=== PATIENT | female | born 2000 | race Two or more races ===

== ENCOUNTER 2025-03-03 13:51 | Emergency (ER) | payer MEDICAID, SELFPAY ==
[2025-03-03 14:31] VITALS: BP 128/83; PULSE 120; RESP 20; TEMP 37.6; O2SAT 95; BMI 49.8
--- NOTE | 2025-03-03 14:44 | EDNOTE_ITS ---
<Statement entered by Keren Lopes MD - 03/04/25 06:23> As co-signing physician, I was present and available for consult prn. I concur with the plan and care as documented by the midlevel provider. ED SOB =RME/HPI General Chief Complaint: Shortness of Breath/Dyspnea Stated Complaint: shortness of breath asthma attack Time Seen by Provider: 03/03/25 14:35 Source: patient Arrival date/time: 03/03/25 13:51 Mode of arrival: ambulatory Limitations: no limitations RME / HPI RME / HPI Narrative: 24-year-old female tells me that she was not able to read and this began last night. Patient is known asthmatic and tells me that her medications were not working properly. Complaint: shortness of breath and cough Onset (ago): day(s) (BEGAN LAST NIGHT) Severity: moderate Known history of: asthma Related Data Previous Rx's ?Medication ?Instructions ?Recorded albuterol sulfate 90 mcg/actuation 2 puff inhalation Q 4H PRN 07/04/22 aerosol inhaler shortness of breath or wheez ing #8.5 grams azithromycin 250 mg tablet See Rx Instructions PO .COM PLEX #6 07/04/22 tabs albuterol sulfate 90 mcg/actuation 2 puff inhalation Q 6H PRN 03/03/25 aerosol inhaler (Ventolin HFA) shortness of breath or wheezing #6.7 grams Allergies Allergy/AdvReac Type Severity Reaction Status Date / Time No Known Allergies Allergy Verified 03/03/25 13:54 Review of Systems Constitutional Constitutional: Reports system reviewed and no additional complaints, except as documented Eyes Eyes: Reports system reviewed and no additional complaints, except as documented, Denies dry eyes, Denies exophthalmos and Reports floaters Cardiovascular Cardiovascular: Denies chest pain with activity and Denies claudication Past Medical History Past Medical History CARDIAC: Negative Congestive Heart Failure RESPIRATORY: Positive Asthma; Negative Chronic Obstructive Pulmonary Disease (COPD) GENITOURINARY: Negative Renal Disease ENDOCRINE: Negative Diabetes Mellitus Type 1 or Diabetes Mellitus Type 2 Social History SMOKING STATUS: Never smoker ED Exam General Limitations: Present no limitations General appearance: Present alert and in no apparent distress Head Head exam: Present atraumatic Eye Eye exam: Present normal appearance, PERRL and EOMI ENT ENT exam: Present normal exam, normal oropharynx and mucous membranes moist Neck Neck exam: Present normal inspection, full ROM and trachea midline Chest Chest inspection: Present normal inspection and symmetric chest wall rise Respiratory Respiratory exam: Present wheezes (Lungs are tight and there is expiratory wheezing present. There is) Cardiovascular Cardiovascular exam: Present regular rate, normal rhythm and normal heart sounds Abdominal Exam Abdominal exam: Present soft and normal bowel sounds Extremities Exam Extremities exam: Present normal inspection and full ROM Back Exam Back exam: Present normal inspection and full ROM Neurological Exam Neurological exam: Present alert, oriented X3 and CN II-XII intact Psychiatric Psychiatric exam: Present normal affect and normal mood Skin Skin exam: Present warm, dry, intact and normal color Course Course Course Narrative: Patient will have a overall breathing treatment as well as prednisone 125 mg x 1. Quality Measures none Orders Category Date Time Status Albuterol/Ipratr Rt Perlita [Duoneb Rt Perlita] Med 03/03/25 14:43 Discontinued 3 ml INH X1 ONE Albuterol/Ipratr Rt Perlita [Duoneb Rt Perlita] Med 03/03/25 15:30 Discontinued 3 ml INH X1 ONE MethylPREDNISolone.* [SoluMEDROL Inj] Med 03/03/25 14:43 Discontinued 125 mg IM X1 ONE Vital Signs Vital signs: Vital Signs Temperature 99.6 F 03/03/25 14:31 Pulse Rate 120 H 03/03/25 14:31 Respiratory Rate 20 03/03/25 14:31 Blood Pressure 128/83 03/03/25 14:31 Pulse Oximetry (%) 95 03/03/25 14:31 Oxygen Delivery Method Room Air 03/03/25 14:31 Pulse ox is 95% room air. Shortness of Breath / Dyspnea MDM Narrative MDM Narrative:: Patient will have Solu-Medrol 125 mg IM as well as an albuterol breathing treatment. Patient data External records reviewed:: Other (specify) Clinical information provided by:: patient Social determinants that could affect healthcare access:: none Patient has the following chronic illnesses:: NA How is presenting disease/condition affected by chronic disease/condition?: no chronic disease Evaluation data The following diagnostics were reviewed and interpreted by me:: other (specify) Lab and/or radiology exams considered but not ordered:: NA Interpretation Summary: NA Medications / Prescriptions Medications or Prescriptions considered but not ordered:: NA Medication administrations:: Medication Administration History Discontinued Medications Albuterol/Ipratropium (Albuterol/Ipratropium (Duoneb) Rt Perlita 3 Ml Nebu) 3 ml INH X1 ONE Stop: 03/03/25 14:44 Last Admin: 03/03/25 14:53 Dose: 3 ml Documented By: EV Albuterol/Ipratropium (Albuterol/Ipratropium (Duoneb) Rt Perlita 3 Ml Nebu) 3 ml INH X1 ONE Stop: 03/03/25 15:31 Last Admin: 03/03/25 15:40 Dose: 3 ml Documented By: EV Methylprednisolone Sodium Succinate (Methylprednisolone Sod Succ 62.5 Mg/Ml 2ml Vial) 125 mg IM X1 ONE Stop: 03/03/25 14:44 Last Admin: 03/03/25 14:48 Dose: 125 mg Documented By: LT Patient recieved the above medication Consultations Consultation(s) initiated? (list below): No Diagnosis Shortness of Breath Differential Diagnosis: acute exacerbation of chronic obstructive airways disease, community acquired pneumonia and asthma with exacerbation Most likely diagnosis given after review of the tests above:: NA Admission Indicated Admission indicated?: not indicated Admission Request Was there a request for admission?: No Disposition Plan Disposition Plan: Discharge Discharge Attestation Discharge Attestation: The patient and all family members were given an opportunity to ask questions and understood the discharge instructions. Discharge instructions specifically effects, indications for sooner follow up or return to the emergency department, and the expected course of current diagnosis. Patient condition: Stable Discharge Plan Plan Patient Disposition: HOME (Self Care) Discharge Disposition comment: Patient discharged to home in no apparent distress Patient condition on transfer: Stable Prescriptions/Referrals Prescriptions/Med Rec: New albuterol sulfate [Ventolin HFA] 90 mcg/actuation HFA aerosol inhaler 2 puff inhalation Q6H PRN (Reason: shortness of breath or wheezing) Qty: 6.7 0RF No Action azithromycin 250 mg tablet See Rx Instructions .ROUTE .COMPLEX Qty: 6 0RF Rx Instructions: For 250 mg dose pack: take 500 mg today (day 1), then 250 mg for 4 days (days 2-5) albuterol sulfate 90 mcg/actuation HFA aerosol inhaler 2 puff inhalation Q4H PRN (Reason: shortness of breath or wheezing) Qty: 8.5 0RF Referrals: Amrit Topete MD [Primary Care Provider] - In 1 week Problem List Clinical Impression: Asthma with exacerbation Patient/Caregiver Discharge Instructions Discharge Activity: resume usual activities Education Materials: Asthma Print Language: Romansh Stand Alone Forms: Patient Portal Info Letter MITCHELL/ELECTRODE CLEANER Supervising Physician MITCHELL/LARISSA Supervising Physician: Marianne
[2025-03-03] MEDS: MethylPREDNISolone SOD SUCC 62.5 MG/ML 2ML VIAL 125 MG IM (14:48)
[2025-03-03] MEDS: ALBUTEROL/IPRATROPIUM (Duoneb) RT SOL 3 ML NEBU INH ×2 (14:53→15:40)
[2025-03-03 14:56] VITALS: PULSE 119; RESP 18; O2SAT 97
[2025-03-03 15:44] VITALS: PULSE 126; RESP 18; O2SAT 100
== END 2025-03-03 16:38 | disposition home or self-care (01) ==
PROVIDERS: Emergency Provider Emergency Medicine; PCP Family Medicine
DX: J45.901 Unspecified asthma with (acute) exacerbation (principal)
CPT/HCPCS: 94640; 96372; 99284; A9270; J2919

== ENCOUNTER 2025-03-10 01:48 | Emergency (ER) | payer MEDICAID, SELFPAY ==
[2025-03-10 01:49] VITALS: BMI 49.8
[2025-03-10 02:58] VITALS: BP 137/88; PULSE 104; RESP 19; TEMP 37.1; O2SAT 96
--- NOTE | 2025-03-10 03:25 | EDNOTE_ITS ---
ED Ear RME/HPI General Chief complaint: Ear Stated complaint: EARACHE ARIANA X 3DAYS Time Seen by Provider: 03/10/25 03:17 Arrival date/time: 03/10/25 01:48 24F with history of asthma presents to ED with 1 week of cough and 3 days of bilateral ear pain. Limitations: no limitations Related Data Previous Rx's ?Medication ?Instructions ?Recorded albuterol sulfate 90 mcg/actuation 2 puff inhalation Q 4H PRN 07/04/22 aerosol inhaler shortness of breath or wheez ing #8.5 grams azithromycin 250 mg tablet See Rx Instructions PO .COM PLEX #6 07/04/22 tabs albuterol sulfate 90 mcg/actuation 2 puff inhalation Q 6H PRN 03/03/25 aerosol inhaler (Ventolin HFA) shortness of breath or wheezing #6.7 grams amoxicillin 875 mg tablet 875 mg PO TID 5 days #15 tab s 03/10/25 Allergies Allergy/AdvReac Type Severity Reaction Status Date / Time No Known Allergies Allergy Verified 03/03/25 13:54 Review of Systems Review of Systems Systems Reviewed: All systems reviewed, normal except as documented Constitutional Constitutional: Reports system reviewed and no additional complaints, except as documented, Denies fever(s) and Denies headache(s) ENT Ears, Nose, Mouth, and Throat: Reports as per HPI, Denies disequilibrium, Reports otalgia and Denies headache(s) Cardiovascular Cardiovascular: Reports system reviewed and no additional complaints, except as documented, Denies chest pain and Denies dyspnea Respiratory Respiratory: Reports system reviewed and no additional complaints, except as d ocumented, Reports as per HPI, Reports cough and Denies dyspnea Gastrointestinal Gastrointestinal: Reports system reviewed and no additional complaints, except as documented, Denies abdominal pain, Denies nausea and Denies vomiting Neurologic Neurologic: Reports system reviewed and no additional complaints, except as documented, Denies confusion, Denies disequilibrium and Denies headache(s) Psychiatric Psychiatric: Denies confusion Past Medical History Past Medical History CARDIAC: Negative Congestive Heart Failure RESPIRATORY: Positive Asthma; Negative Chronic Obstructive Pulmonary Disease (COPD) GENITOURINARY: Negative Renal Disease ENDOCRINE: Negative Diabetes Mellitus Type 1 or Diabetes Mellitus Type 2 Social History SMOKING STATUS: Never smoker ED Exam General Limitations: Present no limitations General appearance: Present alert and in no apparent distress Head Head exam: Present atraumatic Eye Eye exam: Present normal appearance, PERRL and EOMI ENT ENT exam: Present normal oropharynx and mucous membranes moist Expanded ENT Exam TM/Canal exam: Bilateral TM: erythema and bulging Neck Neck exam: Present normal inspection, full ROM and trachea midline Chest Chest inspection: Present normal inspection and symmetric chest wall rise Respiratory Respiratory exam: Present normal lung sounds bilaterally Cardiovascular Cardiovascular exam: Present regular rate, normal rhythm and normal heart sounds Abdominal Exam Abdominal exam: Present soft and normal bowel sounds Extremities Exam Extremities exam: Present normal inspection and full ROM Back Exam Back exam: Present normal inspection and full ROM Neurological Exam Neurological exam: Present alert, oriented X3 and CN II-XII intact Psychiatric Psychiatric exam: Present normal affect and normal mood Skin Skin exam: Present warm, dry, intact and normal color Course Quality Measures none Orders Category Date Time Status Amoxicillin Cap [Amoxil Cap] Med 03/10/25 03:17 Discontinued 1,000 mg PO X1 ONE Dexamethasone Inj [Decadron Inj] Med 03/10/25 03:17 Discontinued 10 mg PO X1 ONE Naproxen [Naprosyn] Med 03/10/25 03:17 Discontinued 500 mg PO X1 ONE Vital Signs Vital signs: Vital Signs Temperature 98.7 F 03/10/25 02:58 Pulse Rate 104 H 03/10/25 02:58 Respiratory Rate 19 03/10/25 02:58 Blood Pressure 137/88 H 03/10/25 02:58 Pulse Oximetry (%) 96 03/10/25 02:58 Oxygen Delivery Method Room Air 03/10/25 02:58 O2 at 96% on RA and WNLs Ear MDM Narrative MDM Narrative:: 24F with history of asthma presents to ED with 1 week of cough and 3 days of bilateral ear pain. Physical exam reveals bilateral red and bulging TMs. Clear lungs. Patient is afebrile, calm, and alert. Will give ABX that will cover both OM and CAP. Patient data External records reviewed:: [facility] previous records Clinical information provided by:: patient Social determinants that could affect healthcare access:: none Patient has the following chronic illnesses:: asthma How is presenting disease/condition affected by chronic disease/condition?: exacerbated by Evaluation data The following diagnostics were reviewed and interpreted by me:: other (specify) (none) Lab and/or radiology exams considered but not ordered:: not ordered Interpretation Summary: n/a Medications / Prescriptions Medications or Prescriptions considered but not ordered:: ordered Medication administrations:: Medication Administration History Discontinued Medications Amoxicillin (Amoxicillin 250 Mg Capsule) 1,000 mg PO X1 ONE Stop: 03/10/25 03:18 Dexamethasone Sodium Phosphate (Dexamethasone Sod Phos Inj 10 Mg/Ml Vial) 10 mg PO X1 ONE Stop: 03/10/25 03:18 Naproxen (Naproxen 250 Mg Tablet) 500 mg PO X1 ONE Stop: 03/10/25 03:18 above Consultations Consultation(s) initiated? (list below): No Diagnosis Ear Differential Diagnosis: otitis externa, otitis media, foreign body in ear, ruptured TM and cerumen impaction Most likely diagnosis given after review of the tests above:: OM Admission Indicated Admission indicated?: not indicated Admission Request Was there a request for admission?: No Disposition Plan Disposition Plan: Discharge Discharge Attestation Discharge Attestation: The patient and all family members were given an opportunity to ask questions and understood the discharge instructions. Discharge instructions specifically effects, indications for sooner follow up or return to the emergency department, and the expected course of current diagnosis. Patient condition: Stable Discharge Plan Plan Patient Disposition: HOME (Self Care) Discharge Disposition comment: Stable Prescriptions/Referrals Prescriptions/Med Rec: New amoxicillin 875 mg tablet 875 mg PO TID 5 Days Qty: 15 0RF No Action azithromycin 250 mg tablet See Rx Instructions .ROUTE .COMPLEX Qty: 6 0RF Rx Instructions: For 250 mg dose pack: take 500 mg today (day 1), then 250 mg for 4 days (days 2-5) albuterol sulfate 90 mcg/actuation HFA aerosol inhaler 2 puff inhalation Q4H PRN (Reason: shortness of breath or wheezing) Qty: 8.5 0RF albuterol sulfate [Ventolin HFA] 90 mcg/actuation HFA aerosol inhaler 2 puff inhalation Q6H PRN (Reason: shortness of breath or wheezing) Qty: 6.7 0RF Referrals: Temporary Provider,ED [Primary Care Provider] - In 1 week Problem List Clinical Impression: Otitis media Patient/Caregiver Discharge Instructions Education Materials: ED Otitis Media Antibiotic ... Additional Instructions: Please follow-up with PCP within 24-48 hours and return immediately if symptoms worsen. Ibuprofen/Tylenol can be used simultaneously for greater fever/pain control. Print Language: Portuguese Stand Alone Forms: Patient Portal Info Letter PA/ENGINEERING AND OPERATIONS DIRECTOR Supervising Physician PA/ENGINEERING AND OPERATIONS DIRECTOR Supervising Physician: Dr. Gregg
[2025-03-10] MEDS: DEXAMETHASONE SOD PHOS INJ 10 MG/ML VIAL PO (03:45)
[2025-03-10] MEDS: NAPROXEN 250 MG TABLET 500 MG PO (03:45)
[2025-03-10] MEDS: AMOXICILLIN 250 MG CAPSULE 1000 MG PO (03:45)
== END 2025-03-10 03:30 | disposition home or self-care (01) ==
LOC: SERX 04:42
PROVIDERS: Emergency Provider Emergency Medicine; PCP Student in an Organized Health Care Education/Training Program
DX: H66.93 Otitis media, unspecified, bilateral (principal); J45.909 Unspecified asthma, uncomplicated
CPT/HCPCS: 99282; J1100; A9270

== ENCOUNTER 2025-09-26 20:04 | Emergency (ER) | payer MEDICAID, SELFPAY ==
[2025-09-26 20:06] VITALS: BMI 47.7
--- NOTE | 2025-09-26 20:10 | EKG_ITS ---
[facility] Test Date: 2025-09-26 Pat Name: DAVID RUIZ Department: Room: - Gender: Female [employer]ular Distributor: : 2000 Requested By: ED Temporary Provider Order Number: [id number] Reading MD: ED Temporary Provider Measurements Intervals [place] Rate: 102 P: 70 HI: 164 QRS: 86 QRSD: 100 T: 66 QT: 335 QTc: 438 Interpretive Statements SINUS TACHYCARDIA ABNORMAL RHYTHM ECG No previous ECG available for comparison /[id number]/[email or web address]/[id number].pdf
[2025-09-26 20:14] VITALS: BP 177/121; PULSE 116; RESP 20; TEMP 36.7; O2SAT 97
--- NOTE | 2025-09-26 20:22 | XR_ITS ---
EXAMINATION: AP chest single view TECHNIQUE: AP portable upright chest single view Date and time: September 26, 2025, 2028 hours INDICATIONS: Shortness of breath cardiac palpitations today. FINDINGS: No significant cardiac enlargement No pneumonia or pulmonary edema Mild elevation right hemidiaphragm IMPRESSION: No active disease
[2025-09-26] MEDS: MG HYD/AL HYD/SIME (Maalox Reg) SUSP 30 ML UDC PO (20:36)
[2025-09-26] MEDS: LIDOCAINE VISCOUS 2% 15 ML UDC PO (20:36)
[2025-09-26] MEDS: ACETAMINOPHEN 325 MG TABLET 650 MG PO (20:36)
[2025-09-26 21:19] LABS: Basophils # (Auto) 0.1 Thou/mm3 (0.0-0.2); Basophils % (Auto) 1 % (0-2.5); Eosinophils # (Auto) 0.8 Thou/mm3 (0.0-0.5); Eosinophils % (Auto) 5 % (0-10); Hematocrit 34.6 % (36.0-46.0); Hemoglobin 10.4 g/dL (12.0-16.0); Immature Granulocytes Auto 0.05 Thou/mm3 (0.00-0.00); Lymphocytes # (Auto) 3.9 Thou/mm3 (1.0-4.8); Lymphocytes % (Auto) 28 % (10-50); Mean Corpuscular HGB Conc 30.1 g/dl (31.0-37.0); Mean Corpuscular Hemoglobin 21.6 pg (25.0-35.0); Mean Corpuscular Volume 72 fL (80-100); Monocytes # (Auto) 0.8 Thou/mm3 (0.0-0.8); Monocytes % (Auto) 5 % (0-12); Neutrophils # (Auto) 8.4 Thou/mm3 (1.8-7.7); Neutrophils % (Auto) 60 % (37-80); Nucleated Red Blood Cell # 0.00 Thou/mm3 (0.00-0.00); Nucleated Red Blood Cell % 0 /100 WBC (0); Platelet Count 438 Thou/mm3 (140-440); RDW Standard Deviation 39.8 fL (36.4-46.3); Red Blood Count 4.82 Miln/mm3 (4.00-5.20); White Blood Count 13.9 Thou/mm3 (3.6-11.0)
[2025-09-26 21:43] LABS: Alanine Aminotransferase 15 U/L (10-49); Albumin, Serum 4.0 gm/dL (3.5-5.0); Albumin/Globulin Ratio 1.4 (1.2-2.2); Alkaline Phosphatase 77 U/L (46-116); Anion Gap 10 (7-16); Aspartate Amino Transferase 13 U/L (0-34); BUN/Creatinine Ratio 19 Ratio (12-20); Bilirubin,Total 0.3 mg/dL (0.3-1.2); Blood Urea Nitrogen 15 mg/dL (9-23); Calcium 8.4 mg/dL (8.3-10.6); Calcium (Corrected) 8.4 mg/dL (8.5-10.1); Carbon Dioxide 26.5 mMol/L (20.0-31.0); Chloride 108 mMol/L (98-107); Creatinine (Component) 0.8 mg/dL (0.6-1.3); Estimated Creatinine Clearance 148.9 mL/min (>60); Globulin 2.9 gm/dL (2.3-3.5); Glucose 145 mg/dL (74-106); Osmolality,Calculated 290 (275-295); Potassium 3.6 mMol/L (3.4-5.1); Sodium 144 mMol/L (136-145); Total Protein 6.9 gm/dL (5.7-8.2); Troponin I < 0.002 ng/mL (0.0-0.045); eGFR > 60 See Note
[2025-09-26 21:47] LABS: B-Type Natriuretic Peptide 33 pg/mL (0-100)
[2025-09-26 22:35] VITALS: BP 126/78; PULSE 86; RESP 20; TEMP 36.4; O2SAT 99
[2025-09-26 22:38] LABS: Collection Type, Urine Voided
[2025-09-26 22:50] LABS: HCG Qualitative,Urine Negative
[2025-09-26 22:52] LABS: Bilirubin,Urine Negative (Negative); Blood,Urine Negative (Negative); Clarity,Urine Clear (Clear/Hazy); Color,Urine Lt-Yellow (Lt Yel-Yel); Glucose, Urine Negative (Negative); Ketones,Urine Negative (Negative); Leukocyte Esterase,Urine Positive (Negative); Nitrite,Urine Negative (Negative); PH,Urine 6.5 (5.0-7.0); Protein,Urine Negative (Neg - Trace); RBC,Urine 4 /hpf (0-3); Specific Gravity,Urine 1.032 (1.001-1.035); Squamous Epithelial Cell,Urine 5 /hpf (0-5); Urobilinogen,Urine Negative mg/dL (0.0-1.0); WBC,Urine 7 /hpf (0-5)
[2025-09-27 00:02] LABS: Strep A Rapid Negative (Negative)
[2025-09-27 01:56] LABS: Thyroid Stimulating Hormone 1.61 uIU/mL (0.55-4.78)
--- NOTE | 2025-09-27 02:22 | EDNOTE_ITS ---
ED Arrhythmia Palp. RME/HPI General Chief Complaint: Chest Pain Stated Complaint: CHEST FEELS TIGHT AND SHAKY Time Seen by Provider: 09/26/25 20:11 Arrival date/time: This is a case of 25-year-old female with no medical history came in in the emergency room due to sore throat and palpitation for 6 days patient denies any chest pain headache nausea vomiting dizziness no shortness of breath denies any hoarseness of voice no drooling of saliva no cough no nasal congestion persistence of the symptoms this patient decided to start consulted in the emergency room Limitations: no limitations Related Data Previous Rx's ?Medication ?Instructions ?Recorded albuterol sulfate 90 mcg/actuation 2 puff inhalation Q 4H PRN 07/04/22 aerosol inhaler shortness of breath or wheez ing #8.5 grams azithromycin 250 mg tablet See Rx Instructions PO .COM PLEX #6 07/04/22 tabs albuterol sulfate 90 mcg/actuation 2 puff inhalation Q 6H PRN 03/03/25 aerosol inhaler (Ventolin HFA) shortness of breath or wheezing #6.7 grams amoxicillin 875 mg-potassium 1 tab PO BID #20 tabs 06/14 clavulanate 125 mg tablet hydroxyzine pamoate 25 mg capsule 25 mg PO BID PRN anx iety #10 caps 09/27/25 lidocaine HCl 2 % mucosal solution 10 ml PO Q4HR PRN s ore throat #100 09/27/25 (Lidocaine Viscous) mL Allergies Allergy/AdvReac Type Severity Reaction Status Date / Time No Known Allergies Allergy Verified 03/03/25 13:54 Review of Systems Review of Systems Systems Reviewed: All systems reviewed, normal except as documented Past Medical History Past Medical History CARDIAC: Negative Congestive Heart Failure RESPIRATORY: Positive Asthma; Negative Chronic Obstructive Pulmonary Disease (COPD) GENITOURINARY: Negative Renal Disease ENDOCRINE: Negative Diabetes Mellitus Type 1 or Diabetes Mellitus Type 2 Social History SMOKING STATUS: Never smoker ED Exam General Limitations: Present no limitations General appearance: Present alert, in no apparent distress and other (Patient is awake alert oriented not in distress nontoxic looking well-hydrated well- nourished) Head Head exam: Present atraumatic, normocephalic and normal inspection Eye Eye exam: Present normal appearance, PERRL and EOMI ENT ENT exam: Present normal exam, normal oropharynx, mucous membranes moist and other (Nose and ear exam normal moderate swelling redness and exudate tonsils uvula midline no peritonsillar abscess no throat or facial swelling no drooling of saliva ) Neck Neck exam: Present normal inspection, full ROM and trachea midline; Absent tenderness, meningismus, lymphadenopathy or thyromegaly Chest Chest inspection: Present normal inspection and symmetric chest wall rise; Absent tenderness, rash or abscess Respiratory Respiratory exam: Present normal lung sounds bilaterally and other (No rhonchi no rales); Absent respiratory distress, wheezes, stridor, accessory muscle use or prolonged expiratory phase Cardiovascular Cardiovascular exam: Present regular rate, normal rhythm and normal heart sounds; Absent bradycardia, tachycardia, irregular rhythm, systolic murmur or diastolic murmur Abdominal Exam Abdominal exam: Present soft and normal bowel sounds; Absent distention, tenderness, guarding, rebound, rigidity, diminished bowel sounds, hyperactive bowel sounds, hypoactive bowel sounds or organomegaly Extremities Exam Extremities exam: Present normal inspection and full ROM Back Exam Back exam: Present normal inspection and full ROM Neurological Exam Neurological exam: Present alert, oriented X3, CN II-XII intact, normal gait and reflexes normal; Absent motor sensory deficit Psychiatric Psychiatric exam: Present normal affect and normal mood Skin Skin exam: Present warm, dry, intact, normal color and other (Excellent skin turgor) Course Quality Measures none Orders Category Date Time Status EKG (ED ONLY) *Do not use* NOW Care 09/26/25 20:10 Completed EKG (ED ONLY) *Do not use* NOW Care 09/26/25 20:22 Completed EKG (ED Only) Stat Exams 09/26/25 20:10 Draft EKG (ED Only) Stat Exams 09/26/25 20:22 Ordered XR chest 1V Stat Exams 09/26/25 20:22 Completed BNP [B-Type Natriuretic Peptide] Stat Lab 09/26/25 20:44 Completed CBC Stat Lab 09/26/25 20:44 Completed CMP [Comprehensive Metabolic Panel] Stat Lab 09/26/25 20:44 Completed HCG Qualitative,Urine Stat Lab 09/26/25 22:27 Completed Sharkey Screen Stat Lab 09/26/25 20:44 Received Strep A Rapid Stat Lab 09/26/25 23:15 Completed TSH [Thyroid Stimulating Hormone] Stat Lab 09/27/25 00:30 Completed Troponin I Stat Lab 09/26/25 20:44 Completed Urinalysis Stat Lab 09/26/25 22:27 Completed Acetaminophen Tab [Tylenol Tab] Med 09/26/25 20:24 Discontinued 650 mg PO X1 ONE Lidocaine 2% Viscous [Xylocaine 2% Viscous] Med 09/26/25 20:24 Discontinued 15 ml PO X1 ONE mg Hyd/Al Hyd/Shaggy Susp [Maalox Susp] Med 09/26/25 20:24 Discontinued 30 ml PO X1 ONE Vital Signs Vital signs: Vital Signs Temperature 98.1 F 09/26/25 20:14 Pulse Rate 116 H 09/26/25 20:14 Respiratory Rate 20 09/26/25 20:14 Blood Pressure 177/121 H 09/26/25 20:14 Pulse Oximetry (%) 97 09/26/25 20:14 Oxygen Delivery Method Room Air 09/26/25 20:14 oxygen saturation is 97% room air Arrhythmia/Palpitations MDM Narrative MDM Narrative:: This is a case of 25-year-old female with no medical history came in in the emergency room due to sore throat and palpitation for 6 days patient denies any chest pain headache nausea vomiting dizziness no shortness of breath denies any hoarseness of voice no drooling of saliva no cough no nasal congestion pers istence of the symptoms this patient decided to start consulted in the emergency room physical examination patient is awake alert oriented not in distress nontoxic looking well-hydrated well nourished HEENT exam noted nose and ears were normal throat were swollen red with exudate but no peritonsillar abscess no drooling. no muffled voice no hot potato rapid strep was done negative monotest is still pending not available today heart normal rate regular rhythm no murmur no pitting edema lungs clear no wheezing no rhonchi no crackles no rales no stridor the rest of the physical examination neurological exam is normal and unremarkable blood test showed leukocytosis at 16,000 lactic acid is not oral hydration was done while waiting in the lobby patient tolerated well no vomiting after oral hydration patient verbalized that improvement of symptoms and ready to discharge no anemia kidney liver function is normal no electrolyte imbalance TSH is normal troponin is negative EKG is sinus rhythm patient palpitation is possibly due to anxiety which the patient verbalized patient was discharged with Vistaril for anxiety Augmentin for exudative tonsillitis lidocaine viscous for sore throat patient will follow-up with PCP in 2 days for reevaluation and for any worsening symptoms or any emergent concern return precaution in the ER advised Patient was discharged with comfortable condition walking with stable gait. Patient verbalized no further complains explained diagnosis and answered patient question. Patient is comfortable with the proposed management plan including the need to follow up with his/her primary care physician and any specialist if applicable Discussed patient for any urgent condition or worsening sx, He/She needed to go to emergency room immediately or call 911. Patient acknowledge the responsibility to follow up as instructed and to monitor her/his symptoms. For any persistence of the symptoms for more than 3-5 days return precaution advised. Discussed the result of the test and was given printed discharge instruction Patient data External records reviewed:: [facility] previous records Clinical information provided by:: patient Social determinants that could affect healthcare access:: none Patient has the following chronic illnesses:: none How is presenting disease/condition affected by chronic disease/condition?: no chronic disease Evaluation data The following diagnostics were reviewed and interpreted by me:: lab results, radiology exam(s) and EKG tracing(s) Lab and/or radiology exams considered but not ordered:: reeviwe Interpretation Summary: reeviwed Medications / Prescriptions Medications or Prescriptions considered but not ordered:: given Medication administrations:: Medication Administration History Discontinued Medications Acetaminophen (Acetaminophen 325 Mg Tablet) 650 mg PO X1 ONE Stop: 09/26/25 20:25 Last Admin: 09/26/25 20:36 Dose: 650 mg Documented By: JANET Al Hydrox/Mg Hydrox/Simethicone (Mg Hyd/Al Hyd/Shaggy (Maalox Reg) Susp 30 Ml Udc) 30 ml PO X1 ONE Stop: 09/26/25 20:25 Last Admin: 09/26/25 20:36 Dose: 30 ml Documented By: JANET Lidocaine HCl (Lidocaine Viscous 2% 15 Ml Udc) 15 ml PO X1 ONE Stop: 09/26/25 20:25 Last Admin: 09/26/25 20:36 Dose: 15 ml Documented By: JANET given Consultations Consultation(s) initiated? (list below): No Diagnosis Differential diagnosis arrhythmia/palpitations: palpitations, anxiety and sinus tachycardia Most likely diagnosis given after review of the tests above:: palpitation anxiety tonsillitis Admission Indicated Admission indicated?: not indicated Explain why admission is indicated or not indicated:: not indicated Admission Request Was there a request for admission?: No Disposition Plan Disposition Plan: Discharge Discharge Attestation Discharge Attestation: The patient and all family members were given an opportunity to ask questions and understood the discharge instructions. Discharge instructions specifically effects, indications for sooner follow up or return to the emergency department, and the expected course of current diagnosis. Patient condition: Stable Discharge Plan Plan Patient Disposition: HOME (Self Care) Patient condition on transfer: Stable Prescriptions/Referrals Prescriptions/Med Rec: New amoxicillin-pot clavulanate 875-125 mg tablet 1 tab PO BID Qty: 20 0RF lidocaine HCl [Lidocaine Viscous] 2 % solution 10 ml PO Q4HR PRN (Reason: sore throat) Qty: 100 0RF hydroxyzine pamoate 25 mg capsule 25 mg PO BID PRN (Reason: anxiety) Qty: 10 0RF No Action azithromycin 250 mg tablet See Rx Instructions .ROUTE .COMPLEX Qty: 6 0RF Rx Instructions: For 250 mg dose pack: take 500 mg today (day 1), then 250 mg for 4 days (days 2-5) albuterol sulfate 90 mcg/actuation HFA aerosol inhaler 2 puff inhalation Q4H PRN (Reason: shortness of breath or wheezing) Qty: 8.5 0RF albuterol sulfate [Ventolin HFA] 90 mcg/actuation HFA aerosol inhaler 2 puff inhalation Q6H PRN (Reason: shortness of breath or wheezing) Qty: 6.7 0RF Referrals: No Primary/Family,Physician [Primary Care Provider] - In 1 week Problem List Clinical Impression: Palpitation, Anxiety, Exudative tonsillitis Patient/Caregiver Discharge Instructions Education Materials: Tonsillitis in Adults, ED Anxiety Reaction, ED Palpitations Additional Instructions: Follow-up with your primary care physician in 2 days for reevaluation and to be referred to housemaid for further evaluation and treatment of palpitation for possible echocardiogram stress test and Holter monitor recurrence persistent worsening symptoms or any emergent concern call 911 or go to the nearest emergency room take your medication as directed finish the course of antibiotic keep hydrated Pedialyte Gatorade for hydration return to the emergency room in 2 days for reevaluation and repeat CBC for leukocytosis warm saline gargle is advised Print Language: [place] Citizen Stand Alone Forms: [facility]issett Award Info., Patient Portal Info Letter PA/ENGINE LATHE SET UP OPERATOR TOOL Supervising Physician PA/LARISSA Supervising Physician: Dr. Ludin Garza
[2025-09-27 02:25] VITALS: BP 122/76; PULSE 88; RESP 16; TEMP 36.9; O2SAT 99
== END 2025-09-27 02:27 | disposition home or self-care (01) ==
PROVIDERS: Nurse Practitioner Family; Emergency Provider Emergency Medicine
DX: J03.90 Acute tonsillitis, unspecified (principal); F41.9 Anxiety disorder, unspecified; R00.2 Palpitations; R06.02 Shortness of breath; R00.0 Tachycardia, unspecified
CPT/HCPCS: 36415; 71045; 80053; 81001; 81025; 83880; 84443; 84484; 85025; 86308; 87651; 93005; 99283; J3490; A9270